=== PATIENT | female | born 1965 | race Caucasian/White ===

== ENCOUNTER 2019-01-31 23:01 | Emergency (ER) | payer SELFPAY ==
[2019-01-31 23:09] VITALS: BP 113/74
[2019-01-31] MEDS ORDERED: HYDROCODONE/ACETAMINOPHEN 5-325 MG TABLET PO ONE (23:34)
[2019-01-31] MEDS ORDERED: HYDROCODONE/ACETAMINOPHEN 5-325 MG (6 TAB/ER DISP) PO PRN (23:34)
[2019-01-31] MEDS ORDERED: ONDANSETRON 4 MG TAB.RAPDIS PO ONE (23:35)
--- NOTE | 2019-01-31 23:42 | RADIOLOGY REPORT (SQ) ---
EXAM DESCRIPTION: XR WRIST 3 OR MORE VIEWS COMPLETED DATE/TME: 01/31/2019 00:00 CLINICAL HISTORY: 53 years Female bone tenderness, obvious deformity COMPARISON: None. TECHNIQUE: LEFT wrist, three views FINDINGS: Comminuted intra-articular fracture of the distal radial metaphysis. Soft tissue swelling. Tiny fracture of the tip of the ulnar styloid. IMPRESSION: Comminuted intra-articular fracture of the distal radial metaphysis Fracture of the tip of the ulnar styloid With
--- NOTE | 2019-02-01 04:55 | ER Document Report ---
Entered by AMBER JESUS SCRIBE 01/31/19 [id number] Acting as scribe for:MARIFER MARQUEZ MD ED General - General Chief Complaint: Wrist Injury Stated Complaint: LEFT WRIST PAIN Time Seen by Provider: 01/31/19 23:22 Notes: Patient is a 53-year-old female presenting to the emergency department with a left wrist injury. Patient states that she is from out of town and she is in town for work, patient states she is staying at a hotel she got up from her bed and slipped over her slippers falling directly on her left wrist. TRAVEL OUTSIDE OF THE [place] IN LAST 30 DAYS: No - Related Data Allergies/Adverse Reactions: prochlorperazine [From Compazine] Allergy (Mild, Verified 01/31/19 23:02) promethazine [From Phenergan] Allergy (Mild, Verified 01/31/19 23:02) Past Medical History - General Information source: Patient - Social History Smoking Status: Never Smoker Cigarette use (# per day): No Chew tobacco use (# tins/day): No Smoking Education Provided: No Frequency of alcohol use: None Drug Abuse: None Family History: Reviewed & Not Pertinent Patient has suicidal ideation: No Patient has homicidal ideation: No Review of Systems - Review of Systems Constitutional: No symptoms reported EENT: No symptoms reported Cardiovascular: No symptoms reported Respiratory: No symptoms reported Gastrointestinal: No symptoms reported Genitourinary: No symptoms reported Female Genitourinary: No symptoms reported Musculoskeletal: No symptoms reported Skin: No symptoms reported Hematologic/Lymphatic: No symptoms reported Neurological/Psychological: No symptoms reported -: Yes All other systems reviewed and negative Physical Exam - Vital signs Vitals: Temp Pulse Resp BP Pulse Ox 97.6 F 72 20 113/74 94 01/31/19 23:07 01/31/19 23:07 01/31/19 23:07 01/31/19 23:07 01/31/19 23:07 - Notes Notes: Physical Exam: General: Alert, appears well. HEENT: Normocephalic. Atraumatic. PERRL. Extraocular movements intact. Oropharynx clear. Neck: Supple. Non-tender. Respiratory: No respiratory distress. Clear and equal breath sounds bilaterally. Cardiovascular: Regular rate and rhythm. Abdominal: Normal Inspection. Non-tender. No distension. Normal Bowel Sounds. Back: Non-tender. No deformity or step off. Extremities: Moves all four extremities. Upper extremities: Left wrist swollen, tenderness to palpation. Radial deviation. +2-second cap refill. Normal ROM. Lower extremities: Normal inspection. No edema. Normal ROM. Neurological: Normal cognition. AAOx4. Normal speech. Psychological: Normal affect. Normal Mood. Skin: Warm. Dry. Normal color. Course - Re-evaluation Re-evalutation: 02/01/19 04:56 The sugar tong splint was placed on the left forearm and wrist by the PCT. It fits well. It provides comfort and stability. Fingertip sensation and capillary refill is intact. A sling was provided and placed on the left upper extremity by the PCT. It fits well and provide support for the weight of the sugar tong splint. - Vital Signs Vital signs: Temp Pulse Resp BP Pulse Ox 97.6 F 72 20 113/74 94 01/31/19 23:07 01/31/19 23:07 01/31/19 23:07 01/31/19 23:07 01/31/19 23:07 - Diagnostic Test Radiology reviewed: Image reviewed, Reports reviewed - Left wrist x-ray shows comminuted intra-articular fracture of the distal radial metaphysis. There is a fracture of the tip of the ulnar styloid. Discharge - Discharge Clinical Impression: Fracture of distal end of radius Qualifiers: Encounter type: initial encounter Fracture type: closed Fracture morphology: other intra-articular Laterality: left Qualified Code(s): S52.572A - Other intraarticular fracture of lower end of left radius, initial encounter for closed fracture Condition: Stable Disposition: HOME, SELF-CARE Additional Instructions: Fractured Distal Radius: The bone called the radius is fractured. This type of fracture is typically caused by falling onto the outstretched hand. A cast or splint is used to protect the fracture. For the first few days after the injury, the arm should be elevated and ice packed. You will most likely need a surgical repair of this fracture. Your doctor has explained the treatment plan. It's important that you follow up as instructed to prevent complications. Call the doctor or return at once if severe pain or swelling occur, or if the hand becomes numb, swollen, or discolored. Elevate your hand is much as possible. Use ice packs to help reduce the swelling. Take the pain medication as needed, if medication such as ibuprofen or Aleve is not adequate. Follow-up with an orthopedic surgeon this week for evaluation of your fracture. RETURN TO THE EMERGENCY ROOM IF ANY NEW OR WORSENING SYMPTOMS. Prescriptions: Hydrocodone/Acetaminophen [[place] 5-325 mg Tablet] 1 tab PO Q4 PRN #12 tablet PRN Reason: Scribe Attestation: 02/01/19 00:01 I personally performed the services described in the documentation, reviewed and edited the documentation which was dictated to the scribe in my presence, and it accurately records my words and actions. I personally performed the services described in the documentation, reviewed and edited the documentation which was dictated to the scribe in my presence, and it accurately records my words and actions.
== END 2019-02-01 00:30 | disposition home or self-care (01) ==
LOC: ER 23:01
DX: S52.572A Other intraarticular fracture of lower end of left radius, initial encounter for closed fracture (principal); S52.612A Displaced fracture of left ulna styloid process, initial encounter for closed fracture; W01.0XXA Fall on same level from slipping, tripping and stumbling without subsequent striking against object, initial encounter; Y92.59 Other trade areas as the place of occurrence of the external cause; Z88.8 Allergy status to other drugs, medicaments and biological substances
CPT/HCPCS: 99283; 73110; 29125; S0119